=== PATIENT | male | born 1965 | race Two or more races ===

== ENCOUNTER → 2018-04-26 | Outpatient (CLI) | payer OTHER ==
[~2018-04-26] MED LIST: CEPH500 PO; CYCL10 PO; DIPH50 PO; HYDACE5 PO; IBUP800 PO; KETO10 PO; METPRE4DP PO; NAPR500 PO; OXYACE5T PO; PENVK250; RANI150 PO; RXCYCL10 PO; RXHYDACE PO; SULTRIDS PO; TRAM50 PO
[2018-04-26 14:52] LABS: Microalb/Creat Ratio UR, Rand 15.377 mg/g (0.000-30.000); Microalbumin, Random Urine 32.6 mg/L (0.000-20.000)
== END ==
LOC: LAB SHORT 13:47 → LAB 13:47
PROVIDERS: Nurse Practitioner Family
DX: E11.65 Type 2 diabetes mellitus with hyperglycemia (principal)
CPT/HCPCS: 82043; 82570

== ENCOUNTER → 2018-08-29 | Outpatient (CLI) | payer OTHER | END | disposition home or self-care (01) | LOC: PLD 07:40 → LAB SHORT 07:40 | DX: L60.2 Onychogryphosis (principal); B35.1 Tinea unguium | CPT/HCPCS: 88305; 88312 ==

== ENCOUNTER → 2021-04-28 | Outpatient (CLI) | payer OTHER | LOC: LAB 11:19 → LAB SHORT 11:19 | DX: L02.91 Cutaneous abscess, unspecified (principal) | CPT/HCPCS: 87070; 87075; 87077; 87147; 87186; 87205 ==

== ENCOUNTER 2022-08-28 17:27 | Emergency (ER) | payer OTHER ==
[~2022-08-28] VITALS: Ht 170.2 cm; Wt 121.1 kg
== END 2022-08-28 20:06 | disposition home or self-care (01) ==
LOC: ER 17:27
DX: S83.91XA Sprain of unspecified site of right knee, initial encounter (principal); F17.200 Nicotine dependence, unspecified, uncomplicated; W01.0XXA Fall on same level from slipping, tripping and stumbling without subsequent striking against object, initial encounter
CPT/HCPCS: 73562-RT

== ENCOUNTER → 2023-03-08 | Outpatient (CLI) | payer OTHER ==
[~2023-03-08] MED LIST changes: +ALOGLIPTIN25 M7 PO; +CENTRUM SILVER1 EAC2 PO; +FENO160 PO; +Miralax17 GM PO; +STEGLATRO15 MG PO
[2023-03-08 17:01] LABS: BASOPHILS ABSOLUTE AUTO 0.03 K/mm3 (0.00-0.23); BASOPHILS PERCENT AUTO 0 % (0-2); EOSINOPHILS ABSOLUTE AUTO 0.12 K/mm3 (0.00-0.68); EOSINOPHILS PERCENT AUTO 2 % (0-6); Hematocrit 45.3 % (37.0-53.0); Hemoglobin 15.7 g/dL (13.5-17.5); IMMATURE GRAN ABSOLUTE AUTO 0.03 K/mm3 (0.00-0.10); IMMATURE GRAN PERCENT AUTO 0 % (0-1); LYMPHOCYTES ABSOLUTE AUTO 1.81 K/mm3 (0.84-5.20); LYMPHOCYTES PERCENT AUTO 25 % (21-46); MONOCYTES ABSOLUTE AUTO 0.47 K/mm3 (0.16-1.47); MONOCYTES PERCENT AUTO 7 % (4-13); Mean Corpuscular HGB 31.9 pg (26.0-34.0); Mean Corpuscular HGB Conc 34.7 g/dL (31.5-36.5); Mean Corpuscular Volume 92 fL (80-100); Mean Platelet Volume 10.3 fL (9.1-12.4); NEUTROPHILS ABSOLUTE AUTO 4.81 K/mm3 (1.96-9.15); NEUTROPHILS PERCENT AUTO 66 % (41-73); Platelet Count 240 K/mm3 (150-400); RDW Coefficient Variation 13.9 % (11.7-14.2); RDW Standard Deviation 47.3 fL (35.1-46.3); Red Blood Cell Count 4.92 M/mm3 (4.30-5.90); White Blood Cell Count 7.27 K/mm3 (4.00-11.30)
[2023-03-08 17:20] LABS: Albumin, Blood 4.1 g/dL (3.4-5.0); Albumin/Globulin Ratio 1.2 (0.8-1.8); Bilirubin, Total 0.5 mg/dL (0.1-1.0); Bun/Creatinine Ratio 13.1 (12.0-20.0); Calcium, Blood 9.1 mg/dL (8.5-10.1); Creatinine, Blood 0.84 mg/dL (0.60-1.20); Globulin, Blood 3.5 g/dL (2.2-4.0); Potassium, Blood 3.9 mmol/L (3.5-5.5); Thyroid Stimulating Hormone 1.68 uIU/mL (0.360-4.800); Total Protein, Blood 7.6 g/dL (6.4-8.2)
== END ==
LOC: LAB 16:56 → LAB SHORT 16:56
PROVIDERS: Physician Assistant
DX: R10.9 Unspecified abdominal pain (principal); R53.83 Other fatigue
CPT/HCPCS: 80053; 82150; 83690; 84443; 85025

== ENCOUNTER → 2023-04-11 | Outpatient (CLI) | payer OTHER | END | disposition home or self-care (01) | LOC: LAB SHORT 07:51 → LAB 07:51 | DX: L82.1 Other seborrheic keratosis (principal); D48.5 Neoplasm of uncertain behavior of skin | CPT/HCPCS: 88305 ==

== ENCOUNTER 2023-09-19 11:19 | Emergency (ER) | payer OTHER ==
[~2023-09-19] VITALS: Ht 170.2 cm; Wt 110.2 kg
[2023-09-19 11:48] VITALS: BP 123/105
[2023-09-19] MEDS ORDERED: Neurontin 300300 MG PO (15:20)
[2023-09-19] MEDS ORDERED: Roxicodone5 MG PO (15:20)
== END 2023-09-19 15:44 | disposition home or self-care (01) ==
LOC: ER 11:19
DX: M54.16 Radiculopathy, lumbar region (principal); M47.814 Spondylosis without myelopathy or radiculopathy, thoracic region; F17.200 Nicotine dependence, unspecified, uncomplicated; Z88.8 Allergy status to other drugs, medicaments and biological substances; Z79.899 Other long term (current) drug therapy
CPT/HCPCS: 72100; 96372; 99283-25; A9270; J1885